=== PATIENT | female | born 2000 | race African-American/Black ===

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

== ENCOUNTER 2018-04-28 14:12 | Emergency (ER) | payer OTHER ==
[2018-04-28 14:26] VITALS: TEMP 98.2
--- NOTE | 2018-04-28 15:12 | ED ---
General Adult HPI - General Chief complaint: Chest Pain Stated complaint: Chest pain Time Seen by Provider: 04/28/18 14:54 Source: patient, RN notes reviewed Mode of arrival: ambulatory Limitations: no limitations - History of Present Illness Initial comments: Patient 17-year-old female with no significant past medical history, presented to the emergency room today with chief complaint of chest pain that started yesterday. Patient does admit that she was going to the grocery store with her mother when she began feeling a pressure-like pain to the anterior chest wall. Patient states that this interview worse when she is up and moving around or with certain movements. Patient states not had similar pain in the past. Does admit that it's tender to palpation over the anterior wall she's been pushing on it. Patient denies any cough or congestion. Denies any fever. Patient denies any shortness of breath. Denies any use of control. Denies any long travel. Denies leg pain or swelling. Patient denies any recent fever, chills, shortness of breath, back pain, abdominal pain, nausea or vomiting, numbness or tingling, or any other complaints. - Related Data Previous Rx's Medication Instructions Recorded Ibuprofen [Motrin] 600 mg PO Q6HR PRN #40 day 04/28/18 Allergies Allergy/AdvReac Type Severity Reaction Status Date / Time No Known Allergies Allergy Verified 04/28/18 15:39 Review of Systems ROS Statement: Those systems with pertinent positive or pertinent negative responses have been documented in the HPI. ROS Other: All systems not noted in ROS Statement are negative. Past Medical History Past Medical History: No Reported History Additional Past Medical History / Comment(s): dizziness History of Any Multi-Drug Resistant Organisms: None Reported Past Surgical History: No Surgical Hx Reported Past Psychological History: No Psychological Hx Reported Smoking Status: Current some day smoker Past Alcohol Use History: None Reported, Rare Past Drug Use History: Marijuana General Exam - General Exam Comments Initial Comments: General: The patient is awake and alert, in no distress, and does not appear acutely ill. Eye: There is normal conjunctiva bilaterally. No signs of icterus. Ears, nose, mouth and throat: There are moist mucous membranes and no oral lesions. Neck: The neck is supple, there is no tenderness or JVD. Cardiovascular: There is a regular rate and rhythm. No murmur, rub or gallop is appreciated. Reproduced on palpation to the anterior chest wall. Respiratory: Lungs are clear to auscultation, respirations are non-labored, breath sounds are equal. No wheezes, stridor, rales, or rhonchi Musculoskeletal: Normal ROM, no tenderness. Neurological: A&O x 3. CN II-XII intact, There are no obvious motor or sensory deficits. Coordination appears grossly intact. Speech is normal. Skin: Skin is warm and dry and no rashes or lesions are noted. Psychiatric: Cooperative, appropriate mood & affect, normal judgment. Limitations: no limitations Course Vital Signs 04/28/18 14:21 Temperature 98.2 F Pulse Rate 70 Respiratory 18 Rate Blood Pressure 114/64 O2 Sat by Pulse 100 Oximetry EKG Findings - EKG Comments: EKG Findings:: EKG performed at 1515: Shows normal sinus rhythm at 60 bpm. MA interval 140. QRS 102. QT/QTc is 400/400. No acute ST changes. Medical Decision Making - Medical Decision Making She says x-rays been reviewed is negative for any acute abnormalities. Patient' s EKG shows normal sinus rhythm. Patient does admit to pain to the anterior chest wall. Is reproducible on palpation. She states it is worse with certain movements. She does admit the pain comes and goes and is not constant. Patient advised most likely musculoskeletal pain to use ibuprofen for pain at this time. Patient is advised follow-up family physician. She is advised return to emergency room symptoms increase or worsen. Patient states understanding and is in agreement. Disposition Clinical Impression: Chest wall pain Disposition: HOME SELF-CARE Condition: Good Instructions (If sedation given, give patient instructions): Chest Wall Pain ( ED) Additional Instructions: Please use medication as discussed. Please follow-up with family doctor in the next 2 days of symptoms have not improved. Please return to emergency room if the symptoms increase or worsen or for any other concerns. Prescriptions: Ibuprofen [Motrin] 600 mg PO Q6HR PRN #40 day PRN Reason: Pain Is patient prescribed a controlled substance at d/c from ED?: No Referrals: None,Stated [Primary Care Provider] - 1-2 days Trace Ashley MD [STAFF PHYSICIAN] - 1-2 days Gianna Alonso MD [STAFF PHYSICIAN] - 1-2 days Time of Disposition: 15:59
--- NOTE | 2018-04-28 15:27 | XR ---
EXAMINATION TYPE: XR chest 2V DATE OF EXAM: 04/28/2018 COMPARISON: NONE HISTORY: Chest pain since this morning. TECHNIQUE: Frontal and lateral views of the chest are obtained. FINDINGS: There is no focal air space opacity, pleural effusion, or pneumothorax seen. The cardiac silhouette size is within normal limits. The osseous structures are intact. IMPRESSION: No acute process.
[2018-04-28 16:25] VITALS: BP 115/64; PULSE 72; RESP 16
== END 2018-04-28 16:25 | disposition home or self-care (01) ==
LOC: EC 14:12
DX: R07.89 Other chest pain (principal); F17.200 Nicotine dependence, unspecified, uncomplicated
CPT/HCPCS: 71046; 93005; 99285

== ENCOUNTER 2018-05-07 00:56 | Emergency (ER) | payer OTHER ==
--- NOTE | 2018-05-07 02:04 | XR ---
EXAM: XR Chest, 2 Views CLINICAL HISTORY: ITS.REASON XR Reason: Pain TECHNIQUE: Frontal and lateral views of the chest. COMPARISON: 04/28/18 FINDINGS: Lungs: Unremarkable. No consolidation. Pleural space: Unremarkable. No pneumothorax. Heart: Unremarkable. No cardiomegaly. Mediastinum: Unremarkable. Bones/joints: Unremarkable. IMPRESSION: No acute cardiopulmonary findings.
[2018-05-07] MEDS ORDERED: KETOROLAC 30 MG/ML 1 ML VIAL IM STA (02:35)
--- NOTE | 2018-05-07 02:49 | ED ---
Chest Pain HPI - General Chief Complaint: Chest Pain Stated Complaint: Chest Pain Source: patient Mode of arrival: wheelchair Limitations: no limitations - History of Present Illness Initial Comments: Tammi is a previously healthy 17-year-old female with no past medical history presents the emergency department today for evaluation of sharp chest pain. Patient reports that throughout the day today she's been experiencing some sharp chest discomfort. Pain seems to be worse with deep inspiration. Pain is not exertional. She has no associated diaphoresis lightheadedness or near-syncope. She has no cardiac history. She has no family history of early cardiac disease or any known family history of cardiac disease whatsoever. She has no personal or family history of DVT or PE. She believes she has one second degree relative with diabetes but otherwise knows of no significant only history or family pathology. Denies any recent illness. She is not on any control. - Related Data Previous Rx's Medication Instructions Recorded Ibuprofen [Motrin] 600 mg PO Q6HR PRN #40 day 04/28/18 Allergies Allergy/AdvReac Type Severity Reaction Status Date / Time No Known Allergies Allergy Verified 04/28/18 15:39 Review of Systems ROS Statement: Those systems with pertinent positive or pertinent negative responses have been documented in the HPI. ROS Other: All systems not noted in ROS Statement are negative. EKG Findings - EKG Comments: EKG Findings:: EKG was obtained at 1:11 AM, rate is 60 rhythm is sinus there is a normal axis there are normal intervals, AR 140 QRS 102 QTc is 392. There are no acute ST elevations or depressions there is no evidence of acute ischemia or infarction. There is no diffuse ST elevation suggestive of pericarditis there is no evidence of acute right heart strain suggestive of PE no tachycardia. Past Medical History Past Medical History: No Reported History Additional Past Medical History / Comment(s): dizziness History of Any Multi-Drug Resistant Organisms: None Reported Past Surgical History: No Surgical Hx Reported Past Psychological History: No Psychological Hx Reported Smoking Status: Current some day smoker Past Alcohol Use History: None Reported, Rare Past Drug Use History: Marijuana General Exam - General Exam Comments Initial Comments: Physical Exam GENERAL: Patient is well-developed and well-nourished. Patient is nontoxic and well- hydrated and is in no distress. HENT: Normocephalic, Atraumatic. EYES: PERRL, EOMI PULMONARY: Unlabored respirations. No audible rales rhonchi or wheezing was noted. CARDIOVASCULAR: There is a regular rate and rhythm without any murmurs gallops or rubs. ABDOMEN: Soft and nontender with normal bowel sounds. SKIN: Skin is clear with no lesions or rashes and otherwise unremarkable. : Deferred NEUROLOGIC: Patient is alert and oriented x3. Moving all extremities spontaneously MUSCULOSKELETAL: Normal extremities with adequate strength and full range of motion. No lower extremity swelling or edema. No calf tenderness. PSYCHIATRIC: Normal psychiatric evaluation. Limitations: no limitations Limitations: no limitations Course Vital Signs 05/07/18 05/07/18 00:57 03:01 Temperature 98.3 F 99.1 F Pulse Rate 78 64 Respiratory 16 20 Rate Blood Pressure 145/70 112/77 O2 Sat by Pulse 99 99 Oximetry Chest Pain MDM - MDM The patient was seen and evaluated, history was obtained from the patient Patient with sharp chest pain nonexertional not associated with any diaphoresis lightheadedness help occasions or shortness of breath Patient with no cardiac risk factors PERC and Wells negative No concern for PE EKG non-ischemic CXR with no acute findings Results discussed with patient who is comfortable with plan for anti- inflammatory and discharge home. All questions pertaining to care were answered, return parameters discussed, patient discharged in stable condition. Disposition Clinical Impression: Chest wall pain, Atypical chest pain Disposition: HOME SELF-CARE Condition: Good Instructions (If sedation given, give patient instructions): Chest Pain (ED), Costochondritis (ED) Is patient prescribed a controlled substance at d/c from ED?: No Referrals: None,Stated [Primary Care Provider] - 1-2 days
[2018-05-07 03:24] VITALS: BP 112/77; PULSE 64; RESP 20; TEMP 99.1
== END 2018-05-07 03:28 | disposition home or self-care (01) ==
LOC: EC 00:56
DX: R07.89 Other chest pain (principal); F17.200 Nicotine dependence, unspecified, uncomplicated
CPT/HCPCS: 71046; 93005; 96372; 99285